=== PATIENT | male | born 1940 | race Caucasian/White ===

== ENCOUNTER 2021-01-22 10:48 | Emergency (ER) | payer BC ==
[~2021-01-22] VITALS: Ht 182.9 cm; Wt 92.5 kg
[2021-01-22] MEDS ORDERED: METFORMIN HCL500 M3 PO ×2 (11:03)
[2021-01-22] MEDS ORDERED: PROSCAR 5MG TABL5 M1 PO (11:03)
[2021-01-22] MEDS ORDERED: MOBIC7.5 MG PO (11:03)
[2021-01-22] MEDS ORDERED: TOPROL XL100 MG PO (11:03)
[2021-01-22] MEDS ORDERED: LISINOPRIL-HCT1 EAC1 PO (11:03)
[2021-01-22] MEDS ORDERED: SUPER THERAVIT1 EACH PO (11:04)
[2021-01-22] MEDS ORDERED: ASA81BEC PO (11:04)
[2021-01-22] MEDS ORDERED: NORVASC5 MG PO (11:04)
[2021-01-22] MEDS ORDERED: VITAMIN D210 MCG PO (11:04)
[2021-01-22 11:11] LABS: HEMATOCRIT 44.6 % (42.0-52.0); HEMOGLOBIN 14.9 gm/dL (14.0-18.0); MCH 33.2 pg (26.0-34.0); MCHC 33.4 g/dL (28.0-37.0); MCV 99.6 fL (80.0-100.0); MPV 8.6 fl. (7.2-11.1); RBC 4.48 mil/uL (4.50-6.00); RDW-CV 14.1 % (10.5-14.5)
[2021-01-22 11:20] LABS: CALCIUM 8.5 mg/dL (8.5-10.1); CREATININE 1.2 mg/dL (0.6-1.3); POTASSIUM 3.9 mmol/L (3.5-5.1)
[2021-01-22 11:25] LABS: ALBUMIN 3.5 g/dL (3.4-5.0); TOTAL BILIRUBIN 0.4 mg/dL (<0.1-1.0); TOTAL PROTEIN 7.4 g/dL (6.4-8.2)
[2021-01-22 12:59] VITALS: BP 148/73
--- NOTE | 2021-01-22 14:21 | EKG ---
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: : 1940 Requested By: Roman Contreras Order Number: [id number] MD: Terrence Fernando Measurements Intervals [place] Rate: 57 P: 15 CA: 144 QRS: -26 QRSD: 97 T: 3 QT: 439 QTc: 428 Interpretive Statements Sinus rhythm Borderline left axis deviation RSR' in V1 or V2, right VCD or RVH Baseline wander in lead(s) II No previous ECG available for comparison Electronically Signed On 01-22-2021 14:20:55 CDT by Terrence Fernando [email or web address] <ELECTRONICALLY SIGNED> By: Terrence Fernando MD, FACC 01/22/21 1420 1113 1113 Terrence Fernando MD, [facility] /EPI
[2021-01-23] MEDS ORDERED: COZAAR 25 MG TA25 M1 PO (15:58)
[2021-01-23] MEDS ORDERED: METFORMIN HCL500 M3 PO (18:05)
== END 2021-01-22 13:00 | disposition home or self-care (01) ==
LOC: M.ERS 10:48
PROVIDERS: Emergency Medicine Emergency Medical Services
DX: I10 Essential (primary) hypertension (principal); Z79.899 Other long term (current) drug therapy; Z79.82 Long term (current) use of aspirin

== ENCOUNTER 2021-01-23 13:46 | Emergency (ER) | payer BC ==
[~2021-01-23] VITALS: Ht 182.9 cm; Wt 92.5 kg
[~2021-01-23 13:46] MED LIST: ASA81BEC PO; LISINOPRIL-HCT1 EAC1 PO; METFORMIN HCL500 M3 PO; MOBIC7.5 MG PO; NORVASC5 MG PO; PROSCAR 5MG TABL5 M1 PO; SUPER THERAVIT1 EACH PO; TOPROL XL100 MG PO; VITAMIN D210 MCG PO
[2021-01-23 14:14] LABS: ABSOLUTE BASOPHILS 0.1 thou/uL (0.0-0.2); ABSOLUTE EOSINOPHILS 0.2 thou/uL (0.0-0.7); ABSOLUTE LYMPHOCYTES 1.8 thou/uL (0.8-5.3); ABSOLUTE MONOCYTES 0.4 thou/uL (0.0-1.2); ABSOLUTE NEUTROPHILS 3.2 thou/uL (1.6-8.1); EOSINOPHILS 3.4 %; HEMATOCRIT 41.9 % (42.0-52.0); LYMPHOCYTES 32.1 %; MCH 33.5 pg (26.0-34.0); MCHC 33.5 g/dL (28.0-37.0); MCV 100.2 fL (80.0-100.0); MONOCYTES 7.5 %; MPV 8.7 fl. (7.2-11.1); NUCLEATED RBCS 0 /100WBC; PLATELET COUNT* 153 thou/uL (150-400); RBC 4.18 mil/uL (4.50-6.00); RDW-CV 14.2 % (10.5-14.5); WBC 5.7 thou/uL (4.0-11.0)
[2021-01-23 14:26] LABS: CALCIUM 8.6 mg/dL (8.5-10.1); CREATININE 1.1 mg/dL (0.6-1.3); POTASSIUM 4.3 mmol/L (3.5-5.1)
[2021-01-23 14:31] LABS: ALBUMIN 3.3 g/dL (3.4-5.0); TOTAL BILIRUBIN 0.4 mg/dL (<0.1-1.0); TOTAL PROTEIN 7.1 g/dL (6.4-8.2)
--- NOTE | 2021-01-23 14:47 | EKG ---
[place] [address] ELECTROCARDIOGRAM REPORT Name: JAZMYNE JARRELL Room: [facility].#: [id number] Admission: Attend Phys: Discharge: Date of : 38 Date of Service: 01/23/21 1356 Report #: [id number] THIS REPORT FOR: //name// 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 : 1940 Requested By: Luis Montero Order Number: [id number] MD: Terrence Fernando Measurements Intervals [place] Rate: 62 P: 24 MS: 149 QRS: -24 QRSD: 99 T: 13 QT: 410 QTc: 417 Interpretive Statements Sinus rhythm Borderline left axis deviation RSR' in V1 or V2, right VCD or RVH Compared to ECG 01/22/2021 11:13:10 rate has increased Electronically Signed On 01-23-2021 14:46:33 CDT by Terrence Fernando [email or web address] <ELECTRONICALLY SIGNED> By: Terrence Fernando MD, [facility] 01/23/21 1446 1356 1356 Terrence Fernando MD, [facility] /EPI
[2021-01-23 14:56] LABS: URINE BILIRUBIN NEGATIVE (Negative); URINE BLOOD NEGATIVE (Negative); URINE CLARITY CLEAR; URINE COLOR YELLOW; URINE GLUCOSE-RANDOM NEGATIVE (Negative); URINE KETONES NEGATIVE (Negative); URINE LEUKOCYTES-REFLEX NEGATIVE (Negative); URINE NITRITE-REFLEX NEGATIVE (Negative); URINE PROTEIN NEGATIVE (Negative); URINE UROBILINOGEN 0.2 E.U./dl (0.2-1.0)
[2021-01-23] MEDS ORDERED: COZAAR 25 MG TA25 M1 PO (15:58)
[2021-01-23 16:17] VITALS: BP 141/70
[2021-01-23] MEDS ORDERED: METFORMIN HCL500 M3 PO (18:05)
== END 2021-01-23 16:18 | disposition home or self-care (01) ==
LOC: M.ERS 13:46
PROVIDERS: Physician Assistant
DX: I10 Essential (primary) hypertension (principal); Z76.0 Encounter for issue of repeat prescription; Z79.899 Other long term (current) drug therapy; Z79.82 Long term (current) use of aspirin